=== PATIENT | female | born 1950 ===

== ENCOUNTER → 2016-05-05 07:59 | Outpatient (CLI) | payer OTHER | END | disposition home or self-care (01) | LOC: D.CT 07:59 | DX: R10.9 Unspecified abdominal pain (principal); R14.0 Abdominal distension (gaseous) ==

== ENCOUNTER 2016-10-17 06:11 | Day surgery (SDC) | payer OTHER ==
[~2016-10-17] VITALS: Ht 175.3 cm; Wt 109.8 kg
--- NOTE | ~2016-10-17 | OP ---
PATIENT NAME: JAYY PURDY MEDICAL RECORD: [id number] :54 LOCATION:D.OPS ADMISSION DATE: SURGEON: BOBBI JORDAN MD DATE OF OPERATION: 10/17/2016 PREOPERATIVE DIAGNOSIS: Squamous papilloma of the esophagus. POSTOPERATIVE DIAGNOSIS: Squamous papilloma of the esophagus. PROCEDURE: Esophagoscopy with argon plasma coagulation therapy to areas of squamous papilloma within the esophagus. The patient had about 5 squamous papillomas. This is a radiofrequency type of ablation of benign esophageal process. ENDOSCOPIC COURSE: The patient was conveyed to the operating room electively on 10/17/2016. The patient underwent a laparoscopic cholecystectomy by Dr. Arias. After he was done with the procedure, a bite block was inserted. A gastroscope was inserted into the mouth. It was advanced easily into the hypopharynx. The esophagus was easily intubated. I advanced to the EG junction. I then slowly withdrew the endoscope. I noticed about 5 squamous papillomas. The largest of these was just above the EG junction. Utilizing the argon plasma med aide with the esophageal setting in the forced mode, I ablated the squamous papillomas. There was no bleeding. No evidence of full thickness injury to the esophagus. The endoscope was then withdrawn under direct vision. I will see the patient back in my office on a p.r.n. basis. As I told her in the past, there is a possibility she could grow more of these squamous papillomas sometime in the future. In that event, she may require further therapy. No family members were present. I then return her endoscopic care back over to Dr. Sosa and Dr. Bailey. TRANSINT:[id number] Voice Confirmation ID: [id number] DOCUMENT ID: [id number] BOBBI JORDAN MD CC: HIGINIO BAILEY MD, CECILIA SOSA MD and TIKA ARIAS [id number] DICTATION DATE: 10/17/16 1135 BAND BOOKER: 10/17/169 [facility] 10/17/16 [id number] [place] [address]
[~2016-10-17 06:11] MED LIST: LEVOTHYROXINE175 MCG PO
[2016-10-17 07:08] VITALS: BP 141/77; Ht 175.3 cm; Wt 109.8 kg
[2016-10-17 07:29] LABS: BASOPHILS 0.9 % (0-2); HEMATOCRIT 37.1 % (36.0-48.0); HEMOGLOBIN 12.1 g/dL (12-16); LYMPHOCYTES 35.8 % (15-50); MCH 27.9 pg (26.0-34.0); MCHC 32.6 g/dL (31.0-37.0); MCV 85.5 fL (80.0-100.0); MEAN PLATELET VOLUME 11.2 fL (7.4-10.4); MONOCYTES 10.3 % (2-11); PLATELET COUNT 167 10x3/uL (130-400); RBC 4.34 10x6/uL (4.00-5.40); RDW 14.5 % (11.5-14.5); WBC 4.4 10x3/uL (4.8-10.8)
[2016-10-17 07:43] LABS: ANION GAP 10.1 mmol/L (8-16); CALCIUM 8.8 mg/dL (8.5-10.1); CARBON DIOXIDE 30.3 mmol/L (21.0-32.0); POTASSIUM - SERUM 4.4 mmol/L (3.5-5.1)
[2016-10-17 07:44] LABS: APTT 26.8 SECONDS (22.8-39.4); INR 0.93 (0.85-1.17); PROTIME 12.3 SECONDS (11.6-15.0)
[2016-10-17] MEDS ORDERED: HYDROCODONE-APA1 TAB PO (10:35)
--- NOTE | 2016-10-18 00:23 | OP ---
PATIENT NAME: JAYY PURDY MEDICAL RECORD: [id number] :54 LOCATION:D.OPS ADMISSION DATE: SURGEON: JARRETT ARIAS MD DATE OF OPERATION: 10/17/2016 PREOPERATIVE DIAGNOSES: 1. Gallstones. 2. Esophageal papilloma. 3. Hypothyroidism. 4. Fibromyalgia. POSTOPERATIVE DIAGNOSES: 1. Gallstones. 2. Esophageal papilloma. 3. Hypothyroidism. 4. Fibromyalgia. PROCEDURE: Laparoscopic cholecystectomy. SURGEON: Jarrett Arias MD REPORT OF PROCEDURE: The patient's abdomen was prepped and draped in sterile fashion. A cutdown was made on the superior aspect of the umbilicus, 0 Vicryls were placed in the fascia bilaterally and the fascia was incised with 15-blade. I then bluntly entered the peritoneal cavity and placed a 12-mm Tiffanie port. Under direct visualization, a 5 mm trocar was placed in the epigastrium and 2 more 5 mm trocars were placed in the right subcostal region. The gallbladder was elevated and there were no sign of inflammation. The cystic artery and duct were dissected free and these were clipped proximally and distally and ligated in standard fashion. The gallbladder was taken off the liver bed using electrocautery and placed into the right upper quadrant. Any bleeding from the liver bed was treated with electrocautery. We then irrigated out the right upper quadrant and assured there was no sign of any bleeding or bile leakage. At this point, the ports and insufflation were then removed and the gallbladder was taken out through the umbilicus. The umbilical fascia was closed with interrupted 0 Vicryls times 3, the wounds were irrigated out with normal saline, infused with 10 mL of 0.25% Marcaine with epinephrine. The skin incisions were closed with subcutaneous 5-0 Monocryl and dressed appropriately. COMPLICATIONS: None. CONDITION: Stable. ANESTHESIA: General endotracheal and local. BLOOD LOSS: Minimal. TRANSINT:[id number] Voice Confirmation ID: [id number] DOCUMENT ID: [id number] OPERATIVE REPORT [id number] RAJWINDERJAYY TALAVERA JARRETT ARIAS MD at 0023 CC: STEPHANE OILVA MD [id number] DICTATION DATE: 10/17/16 1038 [place]A ROOM OPERATOR: 10/17/16 1954 [facility] 10/17/16 [facility] [address] [place] [address]
== END 2016-10-17 15:50 | disposition home or self-care (01) ==
LOC: D.OPS 06:11 → D.PAN 08:45 → D.OPS 15:50
PROVIDERS: Anesthesiology; Surgery
DX: K80.10 Calculus of gallbladder with chronic cholecystitis without obstruction (principal); D13.0 Benign neoplasm of esophagus; E03.9 Hypothyroidism, unspecified; M79.7 Fibromyalgia; Z01.812 Encounter for preprocedural laboratory examination